=== PATIENT | male | born 1970 | race African-American/Black ===

== ENCOUNTER 2020-04-21 20:25 | Emergency (ER) | payer OTHER, SELFPAY ==
--- NOTE | ~2020-04-21 | XR_ITS ---
XR chest 1V portable DATE: 04/21/2020 21:12 INDICATION: Chest pain TECHNIQUE: Portable upright AP chest on 04/21/2020 at 2058 hours COMPARISON: None FINDINGS: Heart size is within normal range. Mild aortic unfolding. No hilar or mediastinal enlargeme nt. No pulmonary infiltrate or consolidation, pleural effusion or pulmonary vascular congestion or pneumo thorax. Degenerative spurring of the thoracic spine. IMPRESSION: No active cardiac pulmonary disease Reviewed, dictated and finalized at location A.
--- NOTE | ~2020-04-21 | CT_ITS ---
EXAMINATION: CTA chest PE protocol DATE: 04/21/2020 22:51 INDICATION: Pulmonary embolism. Chest pain. Elevated d-dimer. TECHNIQUE: Computed tomography (CT) pulmonary angiogram of the chest was performed with 100 mL Omnipa que-350 intravenous contrast. Additional 3D reconstructions utilizing coronal maximum intensity proje ction (MIP) were performed. Automated exposure control and iterative reconstruction technique were em ployed. The dose-length product was 675.44 mGy-cm. COMPARISON: None FINDINGS: Adequate but suboptimal contrast opacification of the pulmonary arteries along with mild scattered re spiratory motion which only minimally limits evaluation. No pulmonary embolism. Mild enlargement of t he central pulmonary arteries which can be seen with pulmonary arterial hypertension. Mild bronchiect atic changes in the bilateral lower lobes. Mild dependent atelectasis in the bilateral lower lobes. N o pneumonia, pulmonary edema, pleural effusion or pneumothorax. Mild cardiomegaly. No pericardial eff usion. Thoracic aorta is normal in caliber with no dissection. No pathologically enlarged thoracic ly mphadenopathy. Partially visualized ill-defined heterogeneously hypodense mass in the right hepatic l obe measuring approximately 6.5 cm maximal diameter. Mild lower cervical spondylosis. IMPRESSION: 1. No pulmonary embolism or other acute cardiopulmonary disease. 2. 6.5 cm mass in the right hepatic lobe which is concerning for malignancy. Recommend further evalua tion with pre and postcontrast MRI or CT. According to documentation in report provided by [facility], Dr. Nguyen TI discussed these findings with emergency room Dr. Gage at 11:22 PM on 04/21/2020. 3. Mild atelectasis and mild bronchiectatic changes in the bilateral lower lobes. 4. Mild cardiomegaly and enlargement of the central pulmonary arteries which can be seen with pulmona ry arterial hypertension. Reviewed, dictated and finalized at location A. IMPRESSION: 1. No pulmonary embolism or other acute cardiopulmonary disease. 2. 6.5 cm mass in the right hepatic lobe which is concerning for malignancy. Re commend further evaluation with pre and postcontrast MRI or CT. According to do cumentation in report provided by [facility], Dr. Wendy GIRON discussed thes e findings with emergency room Dr. Gage at 11:22 PM on 04/21/2020. 3. Mild atelectasis and mild bronchiectatic changes in the bilateral lower lobe s. 4. Mild cardiomegaly and enlargement of the central pulmonary arteries which ca n be seen with pulmonary arterial hypertension.
[2020-04-21 20:37] VITALS: BP 167/103; PULSE 104; RESP 21; TEMP 37.4; O2SAT 99
[2020-04-21 20:41] VITALS: PULSE 101
--- NOTE | 2020-04-21 20:41 | ECG_ITS ---
Measurements Intervals [place] Rate: 107 P: 62 RI: 152 QRS: -2 QRSD: 88 T: 37 QT: 319 QTc: 427 Interpretive Statements SINUS TACHYCARDIA DELAYED PRECORDIAL R/S TRANSITION NONSPECIFIC ST ELEVATION IN ANTERIOR LEADS ABNORMAL ECG Electronically Signed On 04-21-2020 21:28:27 CDT by Issa Mabry D.O.
[2020-04-21 20:55] LABS: Basophils Percent Auto 0.2 % (0.2-1.2); Eosinophils Absolute Auto 0.1 K/mm3 (0-0.3); Hematocrit 33.6 % (42.0-52.0); Hemoglobin 10.7 g/dL (14.0-18.0); Immature Granulocyte Absolute 0.07 K/mm3 (0.00-0.031); Immature Granulocyte Percent A 0.7 % (0-0.5); Lymphocytes Absolute Auto 1.86 K/mm3 (0.9-3.2); Lymphocytes Percent Auto 18.4 % (18.3-44.2); Mean Corpuscular HGB Conc 31.8 g/dl (32-36); Mean Corpuscular Hemoglobin 26.8 pg (26-34); Mean Corpuscular Volume 84.2 fl (80-100); Mean Platelet Volume 10.9 fl (7.4-10.4); Monocytes Absolute Auto 0.9 K/mm3 (0.1-0.6); Monocytes Percent Auto 9.2 % (2.6-8.5); Neutrophils Absolute Auto 7.1 K/mm3 (1.3-6.7); Neutrophils Percent Auto 70.5 % (45.5-73.1); Platelet Count Result 289 k/mm3 (150-375); Red Blood Count 3.99 M/mm3 (4.6-6.20); Red Cell Distribution Width 12.2 % (11.5-14.5); White Blood Count 10.1 K/mm3 (4.5-10.0)
--- NOTE | 2020-04-21 21:04 | ED.GENADULT ---
HPI - General Adult General Chief complaint: Chest Pain Stated complaint: rib pain after coughing Time Seen by Provider: 04/21/20 20:38 Source: patient and family History of Present Illness HPI narrative: Patient is 49 years old -[place] male came to the emergency room complaining of productive cough intermittently over the last 2 weeks, temperature up to 103, started on Z-Stefano and cough medication 3 days ago by his family physician without improvement. Patient works in a warehouse, his doing okay denying any symptoms, patient denied exposure to anybody was positive COVID-19. History of diabetes, does not smoke or drink, currently complaining of right chest pain with coughing. Patient did not have any fever medication today, denying any fever today. Related Data Allergies Allergy/AdvReac Type Severity Reaction Status Date / Time No Known Allergies Allergy Verified 04/21/20 21:44 Review of Systems Review of Systems: Narrative: CONSTITUTIONAL: Denies fever, chills, or sweats. EYES: Denies visual changes, redness, or discharge. ENT: Denies rhinorrhea, congestion, sore throat, or otalgia. CARDIOVASCULAR: Denies chest pain, palpitations, or edema. RESPIRATORY: Coughing and fever GASTROINTESTINAL: Denies abdominal pain, nausea, vomiting, or diarrhea. GENITOURINARY: Denies dysuria or hematuria. SKIN: Denies rash or itching. MUSCULOSKELETAL: Denies back pain, joint pain, or myalgia. NEUROLOGIC: Denies headache, numbness, or weakness. PSYCHIATRIC: Denies anxiety or depression. Exam Narrative: Exam Narrative: General appearance: Well-developed, well-nourished Skin: Normal color Head: Normocephalic, nontraumatic Eyes: Clear conjunctiva ENT: Oropharynx normal, ears normal, nose normal Neck: Supple, nontender Chest and respiratory: Airway patent, no respiratory distress, no accessory muscle use Heart: Regular rate/rhythm Abdomen: Soft, nontender, no organomegaly, quiet bowel sounds Vascular: Normal peripheral pulses, normal capillary refill. 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, no gross motor deficit Course Course Emergency Course: Stable Vital Signs Vital signs: Vital Signs Temperature 37.4 C 04/21/20 20:37 Pulse Rate 104 H 04/21/20 20:37 Respiratory Rate 21 H 04/21/20 20:37 Blood Pressure 167/103 H 04/21/20 20:37 Pulse Oximetry 99 04/21/20 20:37 Temperature 37.2 C 04/21/20 21:41 Pulse Rate 98 04/21/20 22:48 Respiratory Rate 22 H 04/21/20 22:48 Blood Pressure 148/95 H 04/21/20 22:48 Pulse Oximetry 97 04/21/20 22:48 Medical Decision Making MDM Narrative Medical decision making narrative: Fever and coughing for the last 2 weeks, COVID-19 is less likely, pneumonia, bronchitis, pulmonary embolism is my concern. Labs, chest x-ray, d-dimer, ordered. Further plan to follow Vital Signs Vital Signs: Vital Signs Temperature 37.4 C 04/21/20 20:37 Pulse Rate 104 H 04/21/20 20:37 Respiratory Rate 21 H 04/21/20 20:37 Blood Pressure 167/103 H 04/21/20 20:37 Pulse Oximetry 99 04/21/20 20:37 Temperature 37.2 C 04/21/20 21:41 Pulse Rate 98 04/21/20 22:48 Respiratory Rate 22 H 04/21/20 22:48 Blood Pressure 148/95 H 04/21/20 22:48 Pulse Oximetry 97 04/21/20 22:48 Lab Data Result diagrams: 04/21/20 20:49 04/21/20 20:49 Labs: Lab Results 04/21/20 04/21/20 04/21/20 Range/Units 20:48 20:49 20:49 WBC 10.1 H (4.5-10.0) K/mm3 RBC 3.99 L (4.6-6.20) M/mm3 Hgb 10.7 L (14.0-18.0) g/dL Hct 33.6 L (42.0-52.0) % MCV 84.2 (80-100) fl MCH 26.8 (26-34)
[2020-04-21 21:05] LABS: INR 1.1; Prothrombin Time 14.1 Seconds (11.1-14.7)
[2020-04-21 21:06] LABS: Partial Thromboplastin Time 36.5 SECONDS (22.3-36.8)
[2020-04-21 21:07] LABS: Blood Urea Nitrogen 15 mg/dL (9-20); Calcium 8.9 mg/dL (8.4-10.2); Carbon Dioxide 26 mmol/L (22-30); Chloride 102 mmol/L (98-107); Estimated CRCL calculation 123 ml/min; Estimated Glomerular Filt Rate > 60; Glucose 246 mg/dL (75-110); Potassium 3.9 mmol/L (3.4-5.0); Sodium 136 mmol/L (137-145)
[2020-04-21 21:19] LABS: Troponin I < 0.012 ng/mL (0.000-0.034)
[2020-04-21 21:41] VITALS: BP 133/99; PULSE 104; RESP 23; TEMP 37.2; O2SAT 100
[2020-04-21] MEDS: ONDANSETRON INJ 4 MG/2 ML VIAL IV PUSH (21:48)
[2020-04-21] MEDS: MORPHINE SULFATE 4 MG/ML INJ IV PUSH (21:49)
[2020-04-21 22:48] VITALS: BP 148/95; PULSE 98; RESP 22; O2SAT 97
--- NOTE | 2020-04-21 23:11 | PC.NURSE ---
Report received from LISA Jha. Assumed care of patient at this time.
[2020-04-21 23:54] VITALS: BP 147/99; PULSE 100; RESP 20; O2SAT 98
[2020-04-22 00:13] LABS: Troponin I < 0.012 ng/mL (0.000-0.034)
[2020-04-23 20:02] LABS: SARS-CoV-2 RNA PCR Negative
== END 2020-04-21 23:55 | disposition home or self-care (01) ==
PROVIDERS: Emergency Provider Emergency Medicine; PCP Nurse Practitioner Family
DX: R07.89 Other chest pain (principal); J40 Bronchitis, not specified as acute or chronic; R16.0 Hepatomegaly, not elsewhere classified; Z20.828 Contact with and (suspected) exposure to other viral communicable diseases; R00.0 Tachycardia, unspecified; R94.31 Abnormal electrocardiogram [ECG] [EKG]
CPT/HCPCS: 36415; 71045; 71275; 80048; 84484; 85025; 85380; 85610; 85730; 87635; 93005; 96374; 96375; 99284; C9803; J2270; J2405; Q9967; U0003

== ENCOUNTER 2020-08-22 15:43 | Outpatient (CLI) | payer OTHER, SELFPAY ==
--- NOTE | ~2020-08-22 | US_ITS ---
EXAMINATION: US venous doppler [facility] DATE: 08/22/2020 16:23 INDICATION: Left lower limb pain. Varicose veins. TECHNIQUE: Grayscale ultrasound images without and with compression and Doppler ultrasound images of the left lower extremity veins were obtained. COMPARISON: None. FINDINGS: The visualized portions of left common femoral vein, profunda (deep) femoral vein, femoral vein, popl iteal vein, peroneal veins, posterior tibial veins, and greater saphenous vein outflow are patent. Th ere is 3.6 seconds reflux in a left posterior tibial vein. IMPRESSION: 1. No deep venous thrombosis. 2. 3.6 seconds reflux in a left posterior tibial vein. Reviewed, dictated and finalized at location A. AL HYGIENIST
== END 2020-08-22 15:44 | disposition home or self-care (01) ==
PROVIDERS: PCP Student in an Organized Health Care Education/Training Program; Visit Provider Student in an Organized Health Care Education/Training Program
DX: I73.9 Peripheral vascular disease, unspecified (principal)
CPT/HCPCS: 93971

== ENCOUNTER 2020-08-27 07:57 | Outpatient (CLI) | payer OTHER, SELFPAY ==
--- NOTE | ~2020-08-27 | US_ITS ---
EXAMINATION: US arterial ankle brachial ind DATE: 08/27/2020 08:27 INDICATION: Claudication with left foot pain TECHNIQUE: Segmental pressures and plethysmographic and Doppler waveforms of the brachial and lower e xtremity arteries were obtained. COMPARISON: None. FINDINGS: Right and left brachial artery pressures of 163 mm Hg and 156 mm Hg, respectively, are concordant (no rmal difference <= 30 mmHg). The right ankle-brachial index (ERIK) is 1.04 (normal >= 0.9-1.0). The right great toe-brachial index (TBI) is 1.00 (normal >= 0.65). Arterial Doppler waveforms are triphasic with brisk systolic upstroke s at both the right posterior tibial and dorsalis pedis arteries. The left ERIK is 1.03. The left TBI is 1.26. Arterial Doppler waveforms are triphasic with brisk systo lic upstrokes at both the left posterior tibial and dorsalis pedis arteries. IMPRESSION: 1. Hypertension. Otherwise normal study. No significant arterial occlusive disease to either lower li mb. Reviewed, dictated and finalized at location A. MAKING MACHINE OPERATOR IMPRESSION: 1. Hypertension. Otherwise normal study. No significant arterial occlusive dise ase to either lower limb.
== END 2020-08-27 07:58 | disposition home or self-care (01) ==
PROVIDERS: PCP Student in an Organized Health Care Education/Training Program; Visit Provider Student in an Organized Health Care Education/Training Program
DX: I73.9 Peripheral vascular disease, unspecified (principal); I10 Essential (primary) hypertension
CPT/HCPCS: 93922

== ENCOUNTER 2023-01-24 12:03 | Outpatient (CLI) | payer OTHER, SELFPAY ==
[2023-01-24 13:07] LABS: Prothrombin Time 12.6 Seconds (11.1-14.7)
[2023-01-24 13:09] LABS: Appearance Urine Clear (Clear); Bacteria Urine None Seen /hpf; Bilirubin Urine Negative (Negative); Color Urine Yellow (Yellow); Glucose Urine UA 3+ mg/dL (Negative); Ketones Urine Negative (Negative); Leukocyte Esterase Ur Negative LEU/UL (NEGATIVE); Nitrate Urine Negative (Negative); Non Pathogenic Casts 0-2; Protein Urine 2+ mg/dL (Negative); Specific Grav Ur 1.031 (1.001-1.035); Squamous Epithelial Cell Urine None seen /hpf (Few); Urobilinogen Urine 0.2 mg/dL (<2.0); WBC Urine 0-5 /hpf (0-3); pH Urine 5.5 (5.0-9.0)
[2023-01-24 13:13] LABS: Creatinine Urine 90.5 mg/dL; Total Protein Urine Random 77 mg/dL; Ur Ttl Prot Creatinine Ratio 0.85 mg/mg (0-0.20)
[2023-01-24 13:15] LABS: Creatine Kinase 365 U/L (55-170); Sodium Urine Random 75 meq/L
[2023-01-24 13:44] LABS: Add Urine Microscopic? YES
[2023-01-24 13:57] LABS: Erythrocyte Sedimentation Rate 14 mm/hr (0-20)
[2023-01-24 14:06] LABS: Eosinophil Urine None Seen % (None Seen); Urine Eos QC 2nd Tech Confirmed
== END 2023-01-24 12:04 | disposition home or self-care (01) ==
LOC: ANHLAB 12:05
PROVIDERS: PCP Student in an Organized Health Care Education/Training Program; Visit Provider Internal Medicine Nephrology
DX: R74.8 Abnormal levels of other serum enzymes (principal)
CPT/HCPCS: 36415; 81001; 82550; 82570; 84156; 84300; 84443; 85610; 85652; 85999

== ENCOUNTER 2023-01-28 15:33 | Outpatient (CLI) | payer OTHER, SELFPAY ==
--- NOTE | ~2023-01-28 | US_ITS ---
EXAMINATION: US renal BI DATE: 01/28/2023 16:17 INDICATION: R74.8 - Abnormal levels of other serum enzymes TECHNIQUE: Multiple grayscale and Doppler ultrasound images of the kidneys were obtained. COMPARISON: None. FINDINGS: The right kidney measures 11.9 x 7.5 x 7.0 cm. The left kidney measures 12.2 x 6.2 x 7.0 cm. The kidn eys demonstrate normal parenchymal echogenicity. There is no hydronephrosis. The bladder is normal. IMPRESSION: Unremarkable renal sonogram findings. Reviewed, dictated and finalized at location K.
== END 2023-01-28 15:34 | disposition home or self-care (01) ==
PROVIDERS: PCP Student in an Organized Health Care Education/Training Program; Visit Provider Internal Medicine Nephrology
DX: R74.8 Abnormal levels of other serum enzymes (principal)
CPT/HCPCS: 76775

== ENCOUNTER 2023-02-04 12:43 | Outpatient (CLI) | payer OTHER, SELFPAY ==
[2023-02-04 13:38] LABS: Appearance Urine Clear (Clear); Bacteria Urine None Seen /hpf; Bilirubin Urine Negative (Negative); Blood Urine Negative (Negative); Color Urine Dark Yellow (Yellow); Glucose Urine UA 3+ mg/dL (Negative); Ketones Urine Negative (Negative); Leukocyte Esterase Ur Negative LEU/UL (NEGATIVE); Nitrate Urine Negative (Negative); Non Pathogenic Casts 0-2; Protein Urine 1+ mg/dL (Negative); RBC Urine 0-2 /hpf (0-2); Specific Grav Ur 1.024 (1.001-1.035); Squamous Epithelial Cell Urine None seen /hpf (Few); Urobilinogen Urine 0.2 mg/dL (<2.0); WBC Urine 0-5 /hpf (0-3); pH Urine 6.5 (5.0-9.0)
[2023-02-04 13:39] LABS: Albumin Level 4.3 g/dL (3.5-5.1); Anion Gap 5 mmol/L (8-16); Blood Urea Nitrogen 18 mg/dL (9-20); Calcium 9.1 mg/dL (8.4-10.2); Carbon Dioxide 28 mmol/L (22-30); Chloride 108 mmol/L (98-107); Creatine Kinase 225 U/L (55-170); Estimated Glomerular Filt Rate > 60; Glucose 118 mg/dL (65-110); Phosphorus 3.1 mg/dL (2.5-4.5); Potassium 3.8 mmol/L (3.4-5.0); Sodium 141 mmol/L (137-145)
[2023-02-04 13:41] LABS: Creatinine Urine 86.1 mg/dL; Total Protein Urine Random 69 mg/dL
[2023-02-04 13:48] LABS: Add Urine Microscopic? YES
[2023-02-04 13:50] LABS: Erythrocyte Sedimentation Rate 7 mm/hr (0-20); Parathyroid Intact 56.4 pg/mL (7.5-53.5)
== END 2023-02-04 12:44 | disposition home or self-care (01) ==
LOC: ANHLAB 12:44
PROVIDERS: PCP Student in an Organized Health Care Education/Training Program; Visit Provider Internal Medicine Nephrology
DX: R74.8 Abnormal levels of other serum enzymes (principal)
CPT/HCPCS: 36415; 80069; 81001; 81050; 82550; 82570; 83970; 84156; 84443; 85652

== ENCOUNTER 2025-08-27 02:16 | Emergency (ER) | payer OTHER, SELFPAY ==
--- NOTE | ~2025-08-27 | CT_ITS ---
CT ABDOMEN AND PELVIS WITHOUT CONTRAST Clinical History: left flank pain, r/o stone Comparison: None Technique: Unenhanced axial images lung bases to symphysis pubis Coronal, sagittal reformats CT images acquired with automatic exposure control for dose reduction DLP: 494 mGy-cm Findings: Without intravenous contrast, sensitivity for detecting visceral parenchymal abnormalities decreased. Lung bases: Clear. Visualized heart and pericardium: Cardiomegaly. Liver: Unremarkable. Gallbladder: Unremarkable. Spleen: Unremarkable. Pancreas: Unremarkable. Adrenal glands: Unremarkable. Kidneys: Right kidney- No hydronephrosis. No renal stones. Left kidney- Hydronephrosis. No renal stones. Distal esophagus/stomach: Unremarkable. Small bowel loops: Normal caliber and wall thickness. Colon: Normal caliber and wall thickness. Normal RLQ appendix. Nodes: No enlarged nodes. Peritoneum: No ascites. No free intraperitoneal air. Urinary bladder: 6 mm stone left UVJ. Prostate: Unremarkable. Bones: No acute bony abnormality. Soft tissues: Unremarkable. Unopacified abdominal aorta: No aneurysmal dilatation. IMPRESSION: 1. 6 mm stone left UVJ with consequent hydronephrosis. Reviewed, dictated and finalized at location R. LY ANALYST
--- OUTSIDE RECORDS SUMMARY | 2025-08-27 02:19 | XMS_ITS | Encounter Summary ---
Author Organization [facility] Address [address] [place] [id number] Care Team Providers Care Assistant Research Scientist Name Role Phone Levon Clemente Primary Care Provider + Encounter Details Date Type Department Care Team (Late st Contact Info) Description 11/06/2020 Prep for Procedure [facility] Pre-Admission Testing [place] [id number] Franck Alcantara MD [place]. [facility] [address] [place], [place] [id number] Social History Tobacco Use Types Packs/Day Years Used Date Smoking Tobacco: Never Smokeless Tobacco: Never Alcohol Use Standard Drinks/Week Comments No 0 (1 standard drink = 0.6 oz pur e alcohol) socially AUDIT-C Answer Date Recorded Frequency of Alcohol Consumption Never 09/29/2019 Average Number of Drinks Not on file 019 Frequency of Binge Drinking Not on file 09/18 PHQ-2 Answer Date Recorded PHQ-2 Score 0 08/14/2020 Sex and Gender Information Value Date Recorded Sex Assigned at Male 01/07/2023 9:03 AM CDT Legal Sex Male 9:03 PM CDT Gender Identity Male 01/07/2023 9:03 AM CDT Sexual Orientation Straight 01/07/2023 9: 03 AM CDT COVID-19 Exposure Response Date Recorded In the last month, have you been in contact with someone who was confirmed or suspected to have Coronavirus / COVID-19? No / Unsure 11/06/2020 1:23 PM SKATESMAN documented as of this encounter Plan of Treatment Upcoming Encounters Date Type Department Care Team (Late st Contact Info) Description 01/22/2026 9:40 AM CDT Office Visit [facility] [address] [place] [address] Mane Warren MD [address] [place] [address] 02/20/2026 9:00 AM CDT Office Visit [facility] [address] [place] [phone] Levon Clemente DO [address] [place] [address] documented as of this encounter Visit Diagnoses Diagnosis Preop examination- Primary Preoperative examination, unspecified documented in this encounter Additional Health Concerns Infection Onset Date Last Indicated Resolved Time COVID-19 Rule Out 11/13/2020 11/13/2020 11/13/2020 11:04 AM SKATESMAN COVID-19 Rule Out 11/13/2020 11/13/2020 11/13/2020 7:36 PM SKATESMAN Assessment Noted Time PHQ-9 Depression Total Score: 1 08/14/20 20 8:29 AM CDT documented as of this encounter Care Teams Assistant Research Scientist Relationship Specialty Start Date End Date Levon Clemente DO [address] [place] [id number] PCP - General FAMILY PRACTICE 09/19/19 documented as of this encounter
--- OUTSIDE RECORDS SUMMARY | 2025-08-27 02:19 | XMS_ITS | Clinical Summary ---
Author Organization [facility] Address [address] [place] [address] Care Team Providers Care Wind Instrument Repairer Name Role Phone Levon Clemente Primary Care Provider + Allergies No known active allergies Medications Blood Glucose Monitoring Suppl (ACCU-CHEK GUIDE) w/Device Kit 05/04/20 20 Active ACCU-CHEK GUIDE test strip 05/04/20 20 Active Accu-Chek FastClix Lancets Misc 05/04/20 20 Active omeprazole 40 MG capsuleIndications :Gastroesophageal reflux disease, unspecified whether esophagitis present Take 1 capsule (40 mg total) by mouth daily. 30 capsule 1 04/14/20 22 Active FARXIGA 10 MG tabletIndications: Type 2 diabetes mellitus without complication, without long-term current use of insulin ([facility]/HCC [facility]) take 1 tablet by mouth daily 90 tablet 07/13/20 24 Active atorvastatin (LIPITOR) 40 MG tabletIndications: Hyperlipidemia, unspecified hyperlipidemia type TAKE 1 TABLET(40 MG) BY MOUTH EVERY NIGHT AT BEDTIME 90 tablet 07/13/20 24 Active hydrOXYzine (ATARAX) 25 MG tabletIndications: LICO (generalized anxiety disorder),Annual physical exam,Screening for lipid disorders,Screenin g for endocrine, metabolic and immunity disorder Take 1 tablet (25 mg total) by mouth 3 (three) times daily as needed for Itching or Anxiety. Can cause drowsiness 30 tablet 2 01/17/20 25 Active DULoxetine (CYMBALTA) 30 MG capsuleIndications :Lumbar radiculopathy,LICO (generalized anxiety disorder) Take 1 capsule (30 mg total) by mouth daily. 30 capsule 2 03/01/20 25 Active metFORMIN (GLUCOPHAGE) 500 MG tabletIndications: Type 2 diabetes mellitus without complication, without long-term current use of insulin ([facility]) Take 2 tablets (1,000 mg total) by mouth 2 (two) times daily with meals. 360 tablet 2 03/01/20 25 Active amLODIPine (NORVASC) 10 MG tabletIndications: Primary hypertension TAKE 1 TABLET(10 MG) BY MOUTH DAILY 90 tablet 05/15/20 25 Active MOUNJARO 7.5 MG/0.5ML injectionIndicatio ns:Type 2 diabetes mellitus without complication, without long-term current use of insulin ([facility]),Annual physical exam,Screening for lipid disorders,Screenin g for endocrine, metabolic and immunity disorder INJECT 7.5 MG(0.5ML) UNDER THE SKIN EVERY 7 DAYS FOR DIABETES 2 mL 2 06/20/20 25 Active meloxicam (MOBIC) 15 MG tabletIndications: Lumbar radiculopathy Take 1 tablet (15 mg total) by mouth daily. 30 tablet 2 08/22/20 25 Active losartan (COZAAR) 100 MG tabletIndications: Type 2 diabetes mellitus without complication, without long-term current use of insulin ([facility]) Take 1 tablet (100 mg total) by mouth daily. 90 tablet 1 08/22/20 25 Active losartan (COZAAR) 100 MG tabletIndications: Type 2 diabetes mellitus without complication, without long-term current use of insulin ([facility]) TAKE 1 TABLET(100 MG) BY MOUTH DAILY 90 tablet 05/15/20 25 025 Discontin ued(Reord er) Active Problems Problem Noted Date Diagnosed Date Primary osteoarthritis of both knees 05/24/2024 Pain in both knees, unspecified chronicity 01/07 Osteoarthritis of left knee, unspecified osteoarthritis type 01/07/2023 Localized osteoarthritis of right knee 3 Hyperlipidemia, unspecified hyperlipidemia type 11/11/2022 Varicose veins of left lower extremity with pain 10/15/2020 Cough 04/18/2020 Fever, unspecified fever cause 04/18/2020 Fatigue, unspecified type 04/18/2020 Nonintractable headache, uns pecified chronicity pattern, unspecified headache type 04/18/2020 Gastroesophageal reflux dise ase, esophagitis presence not specified 09/29/2019 Backache 08/30/2015 Chronic pain of right knee 08/30/2015 Erectile dysfunction 07/30/2015 Essential hypertension 07/30/2015 Type 2 diabetes mellitus 07/30/2015 Resolved Problems Problem Noted Date Diagnosed Date Resolved Date Not immune to hepatitis B virus 05/13/2020 08/20/2020 Hepatic abscess 04/30/2020 05/12/2023 Overview (08/14/2020): Last Assessment & Plan: 49 y.o. male w/ hx of DM (A1c 12.5), HTN who is transferred from OSH with hepatic abscess culture positive for K. pneumoniae (OSH records pansensitive). Zosyn started 04/26. Drain placed 04/27. Repeat CT on 04/30 was read as no significant decrease in abscess size, with increasing heterogeneity and some free air thought likely 2/2 drain placement. Pt transferred here for further drainage of abscess. WBC stable, afebrile, no abd pain. Drain upsized by IR 05/01, but drainage of only ~50ml so far. K pneumoniae cultured from abscess here, hypermucoviscous phenotype confirmed, only resistance is ampicillin. - change to oral abx: cipro 750 BID, flagyl 500 TID. - Plan for repeat CT scan with ID f/u two weeks after d/c. Pt should continue abx at least until discontinuation of drain, will address at followup appointment. - BCx from 05/01 NGTD - Hep A IgG reactive, Hep B and Hep C negative. Can offer Hep B immunization. LICO (generalized anxiety disorder) 09/29/2019 02/10/2023 Encounters Date Type Department Care Team Description 08/22/2025 9:00 AM MAT SEWER Office Visit [facility] Family & Internal Medicine [address] [phone] Levon Clemente, DO Diabetes (The patient presents for routine follow up ); Back Pain (Patient states he has had low back pain and requested medication last month and did not hear back. Would like to discuss today.) 08/22/2025 - 08/22/2025 11:59 PM MAT SEWER Hospital Encounter [facility] [address] Levon Clemente, DO Discharge Disposition: Home or Self Care (Routine Discharge) 08/22/2025 Telephone [facility] Orthopedic & Sports Medicine [facility] [address] [place] [address] Mane Warren MD Question 08/22/2025 Telephone [facility] Family & Internal [address] [address] Levon Clemente, DO Question 08/22/2025 Travel 08/02/2025 Telephone [facility] [address] [address] Levon Clemente, DO Medication Request 07/20/2025 9:40 AM CDT Office Visit [facility] Orthopedic Sports [facility] [address] [place] [address] Mane Warren MD Procedure (Bilateral knee pain ) 07/20/2025 Travel 06/22/2025 Telephone [facility] [address] [place] [address] Mane Warren MD Appointment Request 06/05/2025 Telephone [facility] [address] [place] [address] Mane Warren MD Reschedule from Last 3 Months Immunizations Immunization Administration Dates Next Due AFLURIA QUAD >36 MONTHS (MULTI-DOSE VIAL) 2019 Cholera Vaccine 07/30/2009 DTaP-IPV (Kinrix) 10/01/2019 Flublok (Quadrivalent) 07/29/2021 Flucelvax 2 YRS+ (Multi-Dose Vial) 07/29/2019 Fluzone (IIV3, Trivalent, 0.5 ML Prefilled Syrin ge) 08/22/2025,11/16/2024 Fluzone 6 Months+ Quad (0.5 mL Prefilled Syringe ) 12/21/2023 Hepatitis A (Generic) 10/01/2019 Hepatitis B (Generic: Adult) 10/03/2019 Influenza (Generic) 08/08/2020 Influenza Adult (Generic) 07/29/2019 MMR (Generic) 10/03/2019 Meningococcal Vac A,C,Y,W-135 Sc 10/03/2019 PFIZER COVID-19 (12+) MRNA, LNP-S, PF, RISHABH-SUCROSE, 30 MCG/0.3 ML (COMIRNATY) 08/22/2025,11/16/2024 PFIZER COVID-19 ([place] [facility]), MRNA, LNP-S, PF, 30 MCG/0.3 ML RISHABH-SUCROSE, IM 04/14/2022 Pneumococcal (Prevnar 20) 11/11/2022 Polio Ipv (Generic) 10/01/2019 Shingrix 07/29/2021 Tdap (Generic) 10/03/2019 Typhoid Vi Polysaccharide Vacc 25 Mcg/0.5Ml Im S oln 10/01/2019 Family History Medical History Relation Comments Hypertension Father Seizures Mother Relation Status Comments Father Mother Social History Tobacco Use Types Packs/Day Years Used Date Smoking Tobacco: Never Passive Smoke Exposure: Never Smokeless Tobacco: Never Tobacco Cessation:Counseling Given: Yes Comments:na Alcohol Use Standard Drinks/Week Comments No 0 (1 standard drink = 0.6 oz pur e alcohol) socially AUDIT-C Answer Date Recorded Frequency of Alcohol Consumption Never 09/29/2019 Average Number of Drinks Not on file Frequency of Binge Drinking Not on file 09/18 PHQ-2 Answer Date Recorded Patient Health Questionnaire-2 Score 0 11/16/2024 Sex and Gender Information Value Date Recorded Sex Assigned at Male 01/07/2023 9:03 AM CDT Legal Sex Male 9:03 PM CDT Gender Identity Male 01/07/2023 9:03 AM CDT Sexual Orientation Straight 01/07/2023 9: 03 AM CDT Last Filed Vital Signs Vital Sign Reading Time Taken Comments Blood Pressure 148/88 08/22/2025 9:23 AM MAT SEWER Pulse 87 08/22/2025 9:14 AM MAT SEWER Temperature 37 C (98.6 F) 08/22/2025 9:14 AM MAT SEWER Respiratory Rate 16 08/22/2025 9:14 AM MAT SEWER Oxygen Saturation 98% 08/22/2025 9:14 AM MAT SEWER Inhaled Oxygen Concentration - - Weight 114.8 kg (253 lb 1.6 oz) 08/22/2025 9:14 AM MAT SEWER Height 182.9 cm (6') 08/22/2025 9:14 AM MAT SEWER Body Mass Index 34.33 08/22/2025 9:14 AM MAT SEWER Plan of Treatment Upcoming Encounters Date Type Department Care Team (Late st Contact Info) Description 01/22/2026 9:40 AM CDT Office Visit [facility] Orthopedic & Sports Medicine [facility] [address] [place] [address] Mane Warren MD [address] [place] [address] 02/20/2026 9:00 AM CDT Office Visit [facility] Family & Internal Medicine [address] [phone] Levon Clemente, [address] [place] [address] Health Maintenance Due Date Last Done Comments Annual Physical 1973 Hepatitis B Vaccines (2 of 3 - 19+ 3-dose series) 10/31/2019 10/03/2019 Zoster Vaccines (2 of 2) 09/23/2021 07/29/2021 Colorectal Cancer Screening Colonoscopy (10 Years) 11/16/2025 Postponed from 1970 (Patient Refused) Lipid Panel 02/15/2026 02/15/2025, 0702/2023, 03/06/2022, Additional history exists Hemoglobin A1C 02/19/2026 08/22/2025, 02/16, 11/16/2024, Additional history exists Diabetes: Retinopathy Eye Exam 02/20/2026 02/20/2025, 01/07/2024, 12/25/2022 Kidney Health Evaluation 08/22/2026 08/22/2025 DTaP, Tdap and Td Vaccines (3 - Td or Tdap) 10/03/2029 10/03/2019, 10/01/2019 Hepatitis A Vaccines Aged Out 10/01/2019 No long er eligible based on patient's age to complete this topic Meningococcal Vaccine Aged Out 10/03/2019 No aracelis nazia eligible based on patient's age to complete this topic Hepatitis C Completed 04/14/2022 Pneumococcal Vaccine: 50+ Years Completed 11/11/2022 PHQ-2 (Physician [place]) Completed 11/16/2024 COVID-19 Vaccine Completed 08/22/2025, , 04/14/2022, Additional history exists Influenza Adult Completed 08/22/2025, 10/20, 12/21/2023, Additional history exists Meningococcal B Vaccine Aged Out No l onger eligible based on patient's age to complete this topic RSV Immunizations Under 20 Months Aged Out No longer eligible based on patient's age to complete this topic Procedures Procedure Name Priority Date/Time Associated Diagnosis Comments COLLECTION VENOUS BLOOD VENIPUNCTURE Routine 08/22/2025 4:54 PM MAT SEWER Type 2 diabetes mellitus without complication, without long-term current use of insulin ([facility]) Primary hypertension Elevated serum creatinine CK (CPK) Routine 08/22/2025 11:14 AM MAT SEWER Type 2 diabetes mellitus without complication, without long-term current use of insulin ([facility]) Primary hypertension Elevated serum creatinine BASIC METABOLIC PANEL Routine 08/22/2025 11:14 AM MAT SEWER Type 2 diabetes mellitus without complication, without long-term current use of insulin ([facility]) Primary hypertension Elevated serum creatinine URIC ACID BLOOD Routine 08/22/2025 11:14 AM MAT SEWER Type 2 diabetes mellitus without complication, without long-term current use of insulin ([facility]) Primary hypertension Elevated serum creatinine ALBUMIN URINE RANDOM W/CREATININE Routine 08/22/2025 11:14 AM MAT SEWER Type 2 diabetes mellitus without complication, without long-term current use of insulin ([facility]) Primary hypertension Elevated serum creatinine COLLECT.CAPILLARY (FNGR,HEEL,EAR) Routine 08/22/2025 9:05 AM MAT SEWER Type 2 diabetes mellitus without complication, without long-term current use of insulin (CMS/HCC HHS/HCC) HEMOGLOBIN, GLYCOSYLATED Routine 08/22/2025 Type 2 diabetes mellitus without complication, without long-term current use of insulin (CMS/HCC HHS/HCC) ARTHROCENTESIS MAJOR JOINT W/ ULTRASOUND GUIDANCE Routine 07/20/2025 9:40 AM CDT Primary osteoarthritis of both knees OUS GUIDE NEEDLE PLCMT ORTHO Routine 07/20/2025 9:21 AM CDT Primary osteoarthritis of both knees DIABETIC RETINOPATHY EXAM (NEGATIVE)(SCAN ORDER) Routine 02/20/2025 LIPID PANEL Routine 02/15/2025 9:59 AM CDT Annual physical exam Screening for lipid disorders Screening for endocrine, metabolic and immunity disorder HEPATITIS C ANTIBODY W/RFX TO HCV RNA Routine 04/14/2022 11:59 AM CDT Need for hepatitis C screening test from Last 3 Months or Most Recently Relevant to Health Maintenance Results * (ABNORMAL) ALBUMIN URINE RANDOM W/CREATININE (08/22/2025 11:14 AM MAT SEWER) MICROALBUMIN (U) 1,066.5(H ) <20 MG/L 08/22/2025 7:51 PM MAT SEWER [facility] CREATININE RANDOM (U) 116.1 MG/DL 08/22/2025 6:12 PM MAT SEWER [facility] ALBUMIN/CREAT RATIO 918.6(H) <30 MG/G 08/22/2025 7:51 PM MAT SEWER [facility] URINE SPECIMEN / Unknown 08/22/2025 11:14 AM MAT SEWER Levon Clemente DO URINE ORDERABLES Final R esult [facility] [address] [place] [address], * (ABNORMAL) BASIC METABOLIC PANEL (08/22/2025 11:14 AM MAT SEWER) [facility] SODIUM S/P/B 145 136 - 145 MMOL/L 08/22/2025 5:04 PM [facility] Comment:RESULT CHECKED POTASSIUM S/P/B 4.0 3.5 - 5.1 MMOL/L 08/22/2025 5:04 PM [facility] Comment:RESULT CHECKED CHLORIDE S/P/B 109(H) 98 - 107 MMOL/L 08/22/2025 5:04 PM [facility] Comment:RESULT CHECKED CO2 23.9 21 - 32 MMOL/L 08/22/2025 3:38 PM [facility] GLUCOSE 124(H) 70 - 99 MG/DL 08/22/2025 3:38 PM [facility] BUN 25(H) 7 - 18 MG/DL 08/22/2025 3:38 PM [facility] CREATININE S/P/B 1.30 0.70 - 1.30 MG/DL 08/22/2025 3:38 PM [facility] CALCIUM S/P/B 9.1 8.4 - 10.5 MG/DL 08/22/2025 3:38 PM [facility] ANION GAP 12.1 5 - 15 MMOL/L 08/22/2025 5:04 PM [facility] Comment:REFERENCE RANGE NOT ESTABLISHED OSMOLALITY (CALC) 306 MOSM/KG 025 5:04 PM [facility] Comment:REFERENCE RANGE NOT ESTABLISHED GFR ESTIMATE 65(L) >90 ML/MIN/1. 73 M2 08/22/2025 3:38 PM [facility] GFR NOTES GFR REFERENCE S: 08/22/2025 3:38 PM [facility] Comment: THE ESTIMATED GFR IS CALCULATED USING THE 2020 CKD-EPI EQUATION. THE FOLLOWING CATEGORIES FOR GRADING RENAL FUNCTION ARE RECOMMENDED BY THE INTERNATIONAL SOCIETY OF NEPHROLOGY (KDIGO 2012 CLINICAL PRACTICE GUIDELINE). G1,NORMAL OR HIGH: >89 ml/min/1.73 m2 G2,MILDLY DECREASED: 60-89 ml/min/1.73 m2 G3A,MILDLY TO MODERATELY DECREASED: 45-59 ml/min/1.73 m2 G3B,MODERATELY TO SEVERELY DECREASED: 30-44 ml/min/1.73 m2 G4,SEVERELY DECREASED: 15-29 ml/min/1.73 m2 G5,KIDNEY FAILURE: <15 ml/min/1.73 m2 08/22/2025 11:1 4 AM MAT SEWER Levon Clemente DO LABORATORY Final Re sult Performing Organization Address [facility] de Phone Number [facility] [address] [place] [address], [place] [phone] * (ABNORMAL) CK (CPK) (08/22/2025 11:14 AM MAT SEWER) CPK 376(H) 39 - 308 U/L 08/22/2025 6:14 PM MAT SEWER [facility] 08/22/2025 11:1 4 AM MAT SEWER Levon Clemente DO LABORATORY Final Re sult Performing Organization Address [facility] Co de Phone Number [facility] [address] [place] [address], [place] [phone] * URIC ACID BLOOD (08/22/2025 11:14 AM MAT SEWER) URIC ACID 5.0 3.5 - 7.2 MG/DL 08/22/2025 3:45 PM MAT SEWER [facility] 08/22/2025 11:1 4 AM MAT SEWER Levon Clemente DO LABORATORY Final Re sult [facility] [address] [facility] [place] [address], * HEMOGLOBIN, GLYCOSYLATED (08/22/2025) HGB A1C 6.4 % [facility] 08/22/2025 Levon Clemente DO LABORATORY Final Re sult [facility] [address] [place] [address], [place] * ARTHROCENTESIS MAJOR JOINT W/ ULTRASOUND GUIDANCE (07/20/2025 9:40 AM CDT) Narrative Mane Warren MD - 07/20/2025 9:40 AM CDT Mane Warren MD 08/22/2025 12:25 PM *Lg Jt Arthrocentesis: bilateral knee Durolane injection on 07/20/2025 9:40 AM Indications: pain Details: 22 G needle, ultrasound-guided lateral approach Medications (Right): (3 mL Durolane injected in the knee after local anesthesia with 3 cc 2% lidocaine) Medications (Left): (3 mL Durolane injected in the knee after local anesthesia with 3 cc 2% lidocaine) Outcome: tolerated well, no immediate complications Procedure, treatment alternatives, risks and benefits explained, specific risks discussed. Consent was given by the patient. Patient was prepped and draped in the usual sterile fashion. Mane Warren MD PROCEDURE/MINOR SURGICAL ORDERA BLES Edited Result - Final * OUS GUIDE NEEDLE PLCMT ORTHO (07/20/2025 9:21 AM CDT) Anatomical Region Laterality Modality Ultrasound 07/20/2025 8:19 AM CDT Narrative 07/20/2025 8:19 AM CDT This report does not contain a radiologist's interpretation. Please review associated procedure and/or operative report. Procedure Note Klever Rosario MD - 07/20/2025 This report does not contain a radiologist's interpretation. Please review associated procedure and/or operative report. Mane Warren MD ULTRASOUND Final Result * DIABETIC RETINOPATHY EXAM (NEGATIVE) (02/20/2025) [facility] Scanned SCANNING Final Resu lt Performing Organization Address City/[facility]/ZIP Co de Phone Number [facility] * (ABNORMAL) LIPID PANEL (02/15/2025 9:59 AM CDT) CHOLESTEROL 182 <200 MG/DL 02/15/2025 3:35 PM CDT [facility] TRIGLYCERIDES 160(H) <150 MG/DL 02/15/2025 3:35 PM CDT [facility] HDL 59 >40 MG/DL 02/15/2025 3:35 PM CDT [facility] LDL-C 91 <100 MG/DL 02/15/2025 3:35 PM CDT [facility] VLDL CALCULATION 32(H) 5 - 28 MG/DL 02/15/2025 3:35 PM CDT [facility] CHOL/HDL RATIO 3.1 0.0 - 4.0 02/15/2025 3:35 PM CDT [facility] LDL/HDL 1.5 0.41 - 2.13 02/15/2025 3:35 PM CDT [facility] NON HDL CHOLESTEROL 123 <140 MG/DL 02/15/2025 3:35 PM CDT [facility] 02/15/2025 9:59 AM CDT Levon Clemente DO LABORATORY Final Re sult Performing Organization Address City/[facility]/ZIP Co de Phone Number [facility] [address] [facility] [place] [address], * (ABNORMAL) HEPATITIS C ANTIBODY W/RFX TO HCV RNA ([facility] ONLY) (04/14/2022 11:59 AM CDT) HEPATITIS C AB REACTIVE(A) NON-REACTIV E [facility] SIGNAL TO CUTOFF 13.10(H) <1.[address] [facility] Comment: Based on this result, the sample will be tested for HCV RNA by a Nucleic Acid Amplification Test (NAAT) to determine if the patient has a current active infection. HEPATITIS C RNA PCR QNT <15 NOT DETECTED NOT DETECTED IU/mL [facility] HEP C RNA PCR QNT LOG <1.18 NOT DETECTED NOT DETECTED Log IU/mL [facility] Comment: HCV RNA is not detected. There is no laboratory evidence of a current active HCV infection. This pattern of results (undetectable HCV RNA combined with reactive HCV antibody) could be consistent with a resolved past infection if the clinical history is compatible with previous HCV exposure. However, if no previous exposure is suspected, the reactive HCV antibody could be a biological false positive result. Comment: [facility] [place] Comment: This test was performed using Real-Time Polymerase Chain Reaction. Reportable Range: 15 IU/mL to 100,000,000 IU/mL (1.18 Log IU/mL to 8.00 Log IU/mL). The analytical performance characteristics of this assay have been determined by [facility]. The modifications have not been cleared or approved by the FDA. This assay has been validated pursuant to the CLIA regulations and is used for clinical purposes. For more information on this test, go to: http://education.ASYM III/faq/OMS58f8 (This link is being provided for informational/ educational purposes only.) This assay is intended for use as an aid in the diagnosis of HCV infection and the management of HCV infected patients undergoing anti-viral therapy. 04/14/2022 11:5 9 AM CDT 04/15/2022 8:14 AM CDT us Levon Clemente DO LABORATORY Final Re sult [facility] [id number] [address] [phone] from Last 3 Months or Most Recently Relevant to Health Maintenance Insurance [facility] Care Teams Wind Instrument Repairer Relationship Specialty Start Date End Date Levon Clemente DO [address] [place] [address] PCP - General FAMILY PRACTICE 09/19/19
--- OUTSIDE RECORDS SUMMARY | 2025-08-27 02:19 | XMS_ITS | Clinical Summary ---
Author Organization [facility] Address [address] [place] [address] Phone Care Team Providers Care Pipe Foreman Name Role Phone Trina Marie NP Unavailable Levon Clemente DO Primary Care Provide r Allergies No known active allergies Medications blood-glucose meter (glucose monitoring kit) kit 1 kit 3 (three) times a day Use as directed 1 each 05/04/20 20 Active lancets 33 gauge misc Ultra fine lancets for 3x/ day testing 90 each 2 05/04/20 20 Active senna-docusate (PERICOLACE) 8.6-50 mgIndications:cons tipation Take 1 tablet by mouth 2 (two) times a day as needed for constipation 20 tablet 05/04/20 Active acetaminophen (TYLENOL) 325 mg tabletIndications: Fever,Pain Take 2 tablets (650 mg total) by mouth every 4 (four) hours as needed for pain 50 tablet 05/04/20 Active pen needle, diabetic 33 gauge x 32 needle Use as directed for once daily injections 30 each 2 05/04/20 20 Active sildenafiL (VIAGRA) 100 mg tablet 08/15/20 Active lansoprazole (PREVACID SOLUTAB) 15 mg disintegrating tablet Take 15 mg by mouth daily Active blood glucose diagnostic (Accu-Chek Guide test strips) stripIndications:T ype 2 diabetes mellitus with hyperglycemia, with long-term current use of insulin (HCC) Use to check blood sugar 1-3 times daily 300 strip 05/27/20 Active naproxen (NAPROSYN) 500 mg tablet 06/14/20 Active metFORMIN (GLUCOPHAGE) 500 mg tabletIndications: Type 2 diabetes mellitus with hyperglycemia, with long-term current use of insulin (HCC) Take 2 tablets (1,000 mg total) by mouth 2 (two) times a day with meals 360 tablet 3 07/09/20 Active losartan (COZAAR) 100 mg tabletIndications: Essential hypertension Take 1 tablet (100 mg total) by mouth daily 30 tablet 07/09/20 Active dapagliflozin (FARXIGA) 10 mg tabletIndications: Type 2 diabetes mellitus with hyperglycemia, with long-term current use of insulin (HCC) Take 1 tablet (10 mg total) by mouth daily 30 tablet 07/09/20 Active atorvastatin (LIPITOR) 20 mg tabletIndications: Type 2 diabetes mellitus with hyperglycemia, with long-term current use of insulin (HCC),Mixed hyperlipidemia Take 1 tablet (20 mg total) by mouth daily 90 tablet 3 07/09/20 Active amLODIPine (NORVASC) 10 mg tabletIndications: Essential hypertension Take 1 tablet (10 mg total) by mouth daily 90 tablet 07/09/20 22 Active Active Problems Problem Noted Date Diagnosed Date Not 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 male w/ hx of DM (A1c 12.5), HTN who is transferred from [facility] with hepatic abscess culture positive for K. [...] C negative. Can offer Hep B immunization. Hypertension 04/30/2020 Uncontrolled type 2 diabetes mellitus with hyper glycemia 04/30/2020 Assessment & Plan (05/03/2020 11:19 AM CDT): Glucoses a little high, but trending down with current medication adjustments. With increased oral intake, he has required mealtime Humalog and is doing reasonably well. We will continue to monitor insulin and nutrient changes Recommendations: - continue Lantus 15 units daily at bedtime - continue Humalog 5 units with meals plus sliding scale - Diabetes Education today Discharge plans: My colleague, Dr. Ye, discussed discharge recommendations for tomorrow: - Lantus 15 units daily at bedtime - resume glimepiride 1 mg daily in the morning - metformin 500 mg twice daily with food - he is welcome to set up a follow-up appointment with the [facility] or [facility] after discharge Immunizations Immunization Administration Dates Next Due DTaP / IPV 10/01/2019 Hep A, Adult 10/01/2019 Hep A, Unspecified 10/01/2019 Hep B Vaccine 10/03/2019 IPV 10/01/2019 Influenza, Quadrivalent, Mary Kate l Culture-based MDCK, Antibiotic Free, Intramuscular 07/29/2019 MMR 10/03/2019 MMRV 10/03/2019 Meningococcal MCV4P (Menactra) 10/03/2019 Tdap 10/03/2019 Typhoid Inactivated 10/01/2019 Surgical History Surgery Date Site/Laterality Comments ABSCESS CATHETER INJECTION 05/01/2020 N/A ABSCESS CATHETER INJECTION 05/11/2020 N/A VARICOSE VEIN SURGERY 11/14/2020 Left Medical History Medical History Date Comments HTN (hypertension) Diabetes Malaria Family History Medical History Relation Name Comments Hypertension Father Relation Name Status Comments Father Social History Tobacco Use Types Packs/Day Years Used Date Smoking Tobacco: Never Smokeless Tobacco: Never Tobacco Cessation:Counseling Given: Not Answered Sex and Gender Information Value Date Recorded Sex Assigned at Not on file Legal 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 HMO/PPO Address: [place] [address] [facility] CHOICE [facility] [facility] HMO/PPO Address: [address] [address] [place] [address] [facility] [facility] HMO/PPO Address: [address] [address] [place] [address] Advance Directives For more information, please contact: [phone] * Full Code (Latest Code Status on File) Date Activated Date Inactivated Comments 05/11/2020 2:07 PM 05/11/2020 7:39 PM * Full Code Date Activated Date Inactivated Comments 04/30/2020 11:20 PM 05/04/2020 11:52 PM Care Teams Pipe Foreman Relationship Specialty Start Date End Date Levon Clemente DO [address] [place] [id number] PCP - General Family Medicine 04/26/21 Trina Marie NP [address] [place] [id number] 04/30/20
--- OUTSIDE RECORDS SUMMARY | 2025-08-27 02:19 | XMS_ITS | Encounter Summary ---
Author Organization [facility] Address [address] [place] [address] Care Team Providers Care Data Capture Clerk Name Role Phone CirilomichellemayaJudah arnettry Beverly AU Primary Care Provider + Reason for Referral * Surgical (Routine) - Closed Specialty Diagnoses / Procedures Referred By Contac t Referred To Contact Diagnoses Varicose veins of left lower extremity with pain Procedures Case request operating room: STAB PHLEBECTOMY Franck Alcantara MD [address] [place] [address] Phone: tel: fax: [place] [address] Phone: tel: Referral ID Status Reason Start Date Expiration Date Visits Re quested Visits Authorized [id number] Closed 11/14/2020 11/03/2021 1 1 O/VISUAL MANAGER Encounter Details Date Type Department Care Team (Late st Contact Info) Description 10/03/2020 Prep for Procedure [facility] [address] [place], [place] [id number] Franck Alcantara MD [facility] [address] [place], [place] [id number] Social History Tobacco Use Types Packs/Day Years Used Date Smoking Tobacco: Never Smokeless Tobacco: Never Alcohol Use Standard Drinks/Week Comments No 0 (1 standard drink = 0.6 oz pur e alcohol) AUDIT-C Answer Date Recorded Frequency of Alcohol [...] or suspected to have Coronavirus / COVID-19? Unable to assess 10/03/2020 1:40 PM AUDIO/VISUAL MANAGER documented as of this encounter Plan of Treatment Upcoming Encounters Date Type Department Care Team (Late st Contact Info) Description 01/22/2026 9:40 AM CDT Office Visit [facility] Orthopedic & Sports Medicine [facility] [address] [place] [address] Mane Warren MD [address] [place] [address] 02/20/2026 9:00 AM CDT Office Visit [facility] Family & Internal Medicine [address] [place] [address] Levno Clemente DO [address] [place] [address] Scheduled Orders Name Type Priority Associated Diagnoses Orde r Schedule Case request operating room: STAB PHLEBECTOMY Case Request Routine Once for 1 Occurrences starting 10/03/2020 until 10/03/2020 documented as of this encounter Visit Diagnoses Diagnosis Varicose veins of left lower extremity with pain- Primary Varicose veins of lower extremities with other complications documented in this encounter Additional Health Concerns Infection Onset Date Last Indicated Resolved Time COVID-19 Rule Out 11/13/2020 11/13/2020 11/13/2020 11:04 AM AUDIO/VISUAL MANAGER COVID-19 Rule Out 11/13/2020 11/13/2020 11/13/2020 7:36 PM AUDIO/VISUAL MANAGER Assessment Noted Time PHQ-9 Depression Total Score: 1 08/14/20 20 8:29 AM CDT documented as of this encounter Care Teams Data Capture Clerk Relationship Specialty Start Date End Date Levon Clemente DO [address] [place] [id number] PCP - General FAMILY PRACTICE 09/19/19 documented as of this encounter
[2025-08-27 02:27] VITALS: PULSE 99; RESP 18; TEMP 36.7; O2SAT 99
--- NOTE | 2025-08-27 02:31 | ED.BACK ---
HPI - Back Pain/Injury General Chief Complaint: Back Pain/Injury Stated Complaint: L flank pain radiating to abd Time Seen by Provider: 08/27/25 02:21 Source: patient Mode of arrival: ambulatory Limitations: no limitations History of Present Illness HPI Narrative: This is a 54-year-old male with history of hypertension, diabetes who presents the ED for left flank pain. Patient states for the past couple days he has been having left flank pain. He was seen by his PCP for this and by Urgent Care was given initial medications that temporarily helped. This morning, he was woken up with worsening pain that is now moving to his abdomen. He has had nausea and vomiting. Denies fevers, chills, hematuria, dysuria. He has never had this pain before. Related Data Home Medications ?Medication ?Instructions ?Recorded ?Confirmed ?Last Taken ?Type amlodipine 10 mg tablet 10 mg PO DAILY 12/23/22 02/24/23 Unknown History dapagliflozin propanediol 10 mg 10 mg PO DAILY 12/23/22 02/24/23 Unknown History tablet (Farxiga) losartan 100 mg tablet 100 mg PO DAILY 12/23/22 02/24/23 Unknown History tirzepatide 2.5 mg/0.5 mL 2.5 mg subcut WEEKLY 12/23/22 02/24/23 Unknown History subcutaneous pen injector Allergies Allergy/AdvReac Type Severity Reaction Status Date / Time No Known Allergies Allergy Verified 08/27/25 02:35 Review of Systems Review of Systems: Gen.: Denies fevers or chills Eyes: Denies eye pain or visual change ENT: Denies congestion Respiratory: Denies shortness of breath or cough CV: Denies chest pain or palpitations GI: As per HPI denies burning, urgency, frequency or hematuria Musculoskeletal: Denies back pain or muscle pain Neuro: Denies numbness, tingling, weakness or focal weakness Skin: Denies rash Except as documented, all other systems reviewed and negative [facility] Past Medical History Medical History LICO (generalized anxiety disorder) Hyperlipidemia Erectile dysfunction DJD (degenerative joint disease) Diabetes Hypertension GERD (gastroesophageal reflux disease) Hepatic abscess Family History Family History Mother Seizure disorder Father Hypertension Social History Social History Alcohol intake: current Alcohol use details: social use Substance use: never Lack of Transportation: No Lack of Food: Never True Current Housing: I Have Housing Concerned About Future Housing: No Difficulty Paying Gas/Electric Bills: No Difficulty Paying for Meds: No Currently Unemployed: No Education: High School Diploma/GED Difficulty w/ Childcare or Family Care: No Gender identity (if verbalized by the patient): Male Exam Narrative: APPEARANCE: No acute distress, nontoxic, resting in bed EYES: EOMI HEENT: Normocephalic, atraumatic, OMM RESPIRATORY: No respiratory distress Clear to auscultation bilaterally with no rhonchi wheezing or rales. CARDIOVASCULAR: Regular rate and rhythm without murmurs rubs or gallops. ABDOMINAL: Soft, nontender, nondistended, no rebound or guarding. Mild CVA tenderness on the left MUSCULOSKELETAl: Moves all extremities. No clubbing, cyanosis or edema. NEURO: Awake and alert. Following commands, speech normal, no focal deficits SKIN:: Warm, dry. No rashes lesions or abrasions PSYCHIATRIC: Normal affect/mood, Course Vital Signs Vital signs: Vital Signs Temperature 98.1 F 08/27/25 02:27 Pulse Rate 99 08/27/25 02:27 Respiratory Rate 18 08/27/25 02:27 Pulse Oximetry 99 08/27/25 02:27 Temperature 98.1 F 08/27/25 02:27 Pulse Rate 94 08/27/25 03:33 Respiratory Rate 15 08/27/25 03:33 Blood Pressure 182/111 H 08/27/25 03:33 Pulse Oximetry 94 08/27/25 03:33 Oxygen Delivery Room Air 08/27/25 02:33 MDM - Back Pain/Injury MDM Narrative Medical decision making narrative: 54-year-old male Presenting for left flank pain. On initial evaluation patient was in no acute distress afebrile, hemodynamic stable. Differentials include but are not limited to: Ureterolithiasis, pyelonephritis, MSK pain, constipation, obstruction, PNA, Cancer Notable exam findings: Mild CVA tenderness on the left Notable lab findings: CBC without significant abnormalities. Mild MYKEL with creatinine at 2.13. Notable imaging findings: CT abdomen/pelvis showed a 6.4 mm mildly obstructing stone at the left UVJ Patient was initially given Toradol and Zofran with mild improvement of his pain initially but it did return. He was subsequently given morphine with near resolution of his symptoms. Reported that his pain had migrated to his lower abdomen so it is possible that the stone is now in his bladder. While patient does have an MYKEL, this should resolve as the stone passes. Patient was deemed appropriate for discharge at this time. Patient was given a prescription for Zofran, Toradol, Flomax. Patient was advised follow-up with their PCP in the next week for re-evaluation. He was given a referral to Dr. Reyes, urology, for further evaluation and management if needed. Patient was agreeable to this plan. Given strict return precautions. Medical Records Attestation: I reviewed the patient's medical records. Lab Data Attestation: I reviewed the patient's lab results. 08/27/25 02:31 08/27/25 02:31 Labs: Lab Results 08/27/25 Range/Units 02:31 WBC 8.6 (4.5-10.0) K/mm3 RBC 4.66 (4.6-6.20) M/mm3 Hgb 13.2 L (14.0-18.0) g/dL Hct 40.3 L (42.0-52.0) % MCV 86.5 (80-100) fl MCH 28.3 (26-34) pg MCHC 32.8 (32-36) g/dl RDW 12.8 (11.5-14.5) % Plt Count 216 (150-375) k/mm3 MPV 10.6 H (7.4-10.4) fl Immature Gran % (Auto) 0.1 (0-0.5) % Neut % (Auto) 77.7 H (45.5-73.1) % Lymph % (Auto) 16.4 L (18.3-44.2) % [place] % (Auto) 5.8 (2.6-8.5) % Eos % (Auto) 0.0 (0-4.4) % Baso % (Auto) 0.0 L (0.2-1.2) % Lymph # (Auto) 1.40 (0.9-3.2) K/mm3 [place] # (Auto) 0.5 (0.1-0.6) K/mm3 Eos # (Auto) 0.0 (0-0.3) K/mm3 Baso # (Auto) 0.0 (0.0-0.1) K/mm3 Abs Immat Gran (auto) 0.01 (0.00-0.031) K/mm3 Absolute Neuts (auto) 6.6 (1.3-6.7) K/mm3 Absolute Nucleated RBC 0.000 (0.0-0.012) K/mm3 Nucleated RBC % 0.0 (0.0-0.2) % Sodium 138 (137-145) mmol/L Potassium 4.1 (3.4-5.0) mmol/L Chloride 104 (98-107) mmol/L Carbon Dioxide 25 (22-30) mmol/L Anion Gap 9 (4-12) mmol/L BUN 37 H D (9-20) mg/dL Creatinine 2.13 H (0.7-1.3) mg/dL Estim Creat Clear Calc 47 ml/min Estimated GFR 33 L (59 - ) Glucose 176 H (65-110) mg/dL Calcium 9.4 (8.4-10.2) mg/dL Total Bilirubin 0.6 (0.2-1.3) mg/dL AST 47 (17-59) U/L ALT 27 (6-50) U/L Alkaline Phosphatase 62 (38-126) U/L Total Protein 7.7 (6.3-8.2) g/dL Albumin 4.4 (3.5-5.1) g/dL Lipase 128 (23-300) U/L Urine Color Yellow (Yellow) Urine Appearance Clear (Clear) Urine pH 6.5 (5.0-9.0) Ur Specific [place] 1.022 (1.001-1.035) Urine Protein 3+ H (Negative) mg/dL Urine Glucose (UA) Negative (Negative) mg/dL Urine Ketones Negative (Negative) mg/dL Ur Blood (Man) Non-hemolyzed trace (Negative) Urine Nitrate Negative (Negative) Urine Bilirubin Negative (Negative) Urine Urobilinogen 1.0 (<2.0) mg/dL Leukocyte Esterase Rfl Negative (Negative) FRANKLIN/UL Urine RBC 3-5 H (0-2) /hpf Urine WBC 0-5 (0-3) /hpf Ur Squamous Epith Cells None seen (Few) /hpf Urine Bacteria None seen /hpf Urine Casts 0-2 Imaging Data Attestation: I personally reviewed and interpreted this imaging study as follows: My impression: CT abdomen/pelvis: 6 mm ureteral stone at the left UVJ with mild hydroureter and hydronephrosis Radiologist's impression: CT abdomen/pelvis: 6.4 mm mildly obstructing stone seen at the left UVJ Discharge Plan Discharge Clinical Impression: Ureterolithiasis, MYKEL (acute kidney injury) Patient Disposition: Home Condition: Stable Instructions: Antibiotic Form, Ureteral Stones (ED) Additional Instructions: You were found to have a 6 mm stone that is near your bladder, this is likely the source of your pain. This should pass in the next few days. Strain your urine with the urine strainer. Take Flomax and Toradol and Zofran as prescribed. You may take Tylenol for your pain as well. Return to the ED for any new or worsening symptoms. Patient Language: Romanian Prescriptions: New tamsulosin [Flomax] 0.4 mg capsule 0.4 mg PO HS Qty: 30 0RF ketorolac 10 mg tablet 10 mg PO Q8H PRN (Reason: pain) Qty: 9 0RF Rx Instructions: maximum total duration of 5 days from all oral, intranasal, or parenteral formulations ondansetron 4 mg tablet,disintegrating 4 mg PO Q8H PRN (Reason: nausea and vomiting) Qty: 15 0RF No Action amlodipine 10 mg tablet 10 mg PO DAILY Farxiga 10 mg tablet 10 mg PO DAILY losartan 100 mg tablet 100 mg PO DAILY tirzepatide 2.5 mg/0.5 mL pen injector 2.5 mg subcut WEEKLY Follow-up/Referrals: Bryn,DO Levon [Primary Care Provider] Allen Reyes MD [Physician, Urology] Stand Alone Forms: Work/School Release IP
[2025-08-27 02:33] VITALS: BP 190/110; PULSE 91; RESP 18; O2SAT 96
[2025-08-27] MEDS: ONDANSETRON INJ 4 MG/2 ML VIAL IV PUSH (02:35)
[2025-08-27] MEDS: KETOROLAC 30 MG/ML VIAL (*BKC) IV PUSH (02:35)
[2025-08-27] MEDS: SODIUM CHLORIDE 0.9% IV 1,000 ML 999 ML IV CONT ×2 (02:35→03:27)
[2025-08-27] MEDS: Please enter patient height and weight for medication dosing 1 EACH XX (02:36)
[2025-08-27 02:46] LABS: Hematocrit 40.3 % (42.0-52.0); Hemoglobin 13.2 g/dL (14.0-18.0); Immature Granulocyte Percent A 0.1 % (0-0.5); Lymphocytes Absolute Auto 1.40 K/mm3 (0.9-3.2); Mean Corpuscular HGB Conc 32.8 g/dl (32-36); Mean Corpuscular Hemoglobin 28.3 pg (26-34); Mean Corpuscular Volume 86.5 fl (80-100); Nucleated Red Blood Cells Absolute Auto 0.000 K/mm3 (0.0-0.012); Nucleated Red Blood Cells Perc 0.0 % (0.0-0.2); Platelet Count Result 216 k/mm3 (150-375); Red Blood Count 4.66 M/mm3 (4.6-6.20); White Blood Count 8.6 K/mm3 (4.5-10.0)
[2025-08-27 02:50] LABS: Add Urine Microscopic? YES; Appearance Urine Clear (Clear); Glucose Urine UA Negative (Negative); Leukocyte Esterase Ur Negative LEU/UL (Negative); Nitrate Urine Negative (Negative); Non Pathogenic Casts 0-2; Specific Grav Ur 1.022 (1.001-1.035)
[2025-08-27 03:07] LABS: Alanine Aminotransferase 27 U/L (6-50); Albumin Level 4.4 g/dL (3.5-5.1); Alkaline Phosphatase 62 U/L (38-126); Anion Gap 9 mmol/L (4-12); Aspartate Amino Transferase 47 U/L (17-59); Bilirubin,Total 0.6 mg/dL (0.2-1.3); Blood Urea Nitrogen 37 mg/dL (9-20); Calcium 9.4 mg/dL (8.4-10.2); Carbon Dioxide 25 mmol/L (22-30); Chloride 104 mmol/L (98-107); Estimated CRCL calculation 47 ml/min; Estimated Glomerular Filt Rate 33; Glucose 176 mg/dL (65-110); Lipase 128 U/L (23-300); Potassium 4.1 mmol/L (3.4-5.0); Sodium 138 mmol/L (137-145); Total Protein 7.7 g/dL (6.3-8.2)
[2025-08-27] MEDS: MORPHINE SULFATE (*CRX) 4 MG/ML INJ IV PUSH (03:29)
[2025-08-27] MEDS: TAMSULOSIN HCL 0.4 MG CAPSULE PO (03:29)
[2025-08-27 03:33] VITALS: BP 182/111; PULSE 94; RESP 15; O2SAT 94
[2025-08-27 04:39] VITALS: BP 179/99; PULSE 80; RESP 19; TEMP 37.1; O2SAT 99
== END 2025-08-27 04:42 | disposition home or self-care (01) ==
PROVIDERS: Emergency Provider Student in an Organized Health Care Education/Training Program; PCP Student in an Organized Health Care Education/Training Program
DX: N13.2 Hydronephrosis with renal and ureteral calculous obstruction (principal); N17.9 Acute kidney failure, unspecified; I10 Essential (primary) hypertension; E11.9 Type 2 diabetes mellitus without complications; E78.5 Hyperlipidemia, unspecified; K21.9 Gastro-esophageal reflux disease without esophagitis; Z79.899 Other long term (current) drug therapy; Z79.85 Long-term (current) use of injectable non-insulin antidiabetic drugs
CPT/HCPCS: 36415; 74176; 80053; 81001; 83690; 85025; 96361; 96374; 96375; 99284; A9270; J1885; J2270; J2405; J7030